=== PATIENT | male | born 1970 ===

== ENCOUNTER 2016-10-14 21:50 | Emergency (ER) | payer BC ==
[2016-10-14 22:00] VITALS: BP 150/90; PULSE 114; TEMP 98; BMI 27.1
[2016-10-14] MEDS ORDERED: OXYCODONE/APAP 5/325MG COMBO TABLET ONE (22:19)
[2016-10-14] MEDS ORDERED: OXYCODONE/APAP 5/325MG COMBO TABLET PO ONE (22:20)
--- NOTE | 2016-10-14 22:21 | PDOC ---
[id number] L ANKLE INJURY Time Seen by Provider: 10/14/16 22:20 - History of Present Illness Initial Comments: This 46-year-old man with a history of [id number] diabetes mellitus but no other significant past medical history presents with left ankle injury: Patient was playing soccer earlier this evening when he fell, twisting his left ankle. Patient states that his ankle appeared deformed after the fall and he "pushed it back into place". Patient has not been able to bear weight without extreme pain. No history of left leg/ankle injury in the past. He denies numbness/tingling in the left foot. Patient did not hit his head or injure his neck Past History - Past Medical History Allergies/Adverse Reactions: Allergies Allergy/AdvReac Type Severity Reaction Status Date / Time No Known Allergies Allergy Unverified 10/14/16 22:00 Home Medications: Ambulatory Orders Metformin HCl 500 mg PO DAILY 10/14/16 Oxycodone HCl/Acetaminophen [Percocet 5-325 mg Tablet] 1 - 2 tab PO Q6H PRN #20 tab MDD 4 tabs 10/15/16 Diabetes: Yes - Psycho/Social/Smoking Cessation Hx Anxiety: No Suicidal Ideation: No Smoking History: Unknown if ever smoked Have you smoked in the past 12 months: No Number of Cigarettes Smoked Daily: 0 Information on smoking cessation initiated: No Hx Alcohol Use: No Drug/Substance Use Hx: No Substance Use Type: None Review of Systems - Review of Systems Able to Perform ROS?: Yes Comments:: 12 point review of systems is negative except for what is noted in the history of present illness *Physical Exam - Vital Signs Last Vital Signs Temp Pulse Resp BP Pulse Ox 98 F 114 H 15 150/90 98 10/14/16 21:53 10/14/16 21:53 10/14/16 21:53 10/14/16 21:53 10/14/16 21:53 - Physical Exam Comments: GENERAL: The patient is awake, alert, and fully oriented, in moderate distress secondary to left ankle pain. Vital signs as noted. HEAD: Normal with no signs of trauma. EYES: Pupils equal, round and reactive to light, extraocular movements intact, sclera anicteric, conjunctiva clear with no pallor. ENT: moist mucous membranes. Ears normal, nares patent, oropharynx clear without exudates. NECK: Normal range of motion, supple without lymphadenopathy, JVD, or masses. LUNGS: Breath sounds equal, clear to auscultation bilaterally. No wheeze/ crackles. HEART: Regular rate and rhythm, normal S1 and S2 without murmur or rub. ABDOMEN: Soft/nontender/nondistended. BS wnl. No guarding or rebound. No palpable masses. No hepatosplenomegaly. EXTREMITIES: Left lower extremity-marked edema/deformity lateral malleolus with point tenderness at the malleolus and just distally No ecchymosis; palpable dorsalis pedis pulse at the midfoot; no foot deformity or tenderness. Distal foot warm and dry with excellent capillary refill; sensory functioning intact Remainder of the extremity exam is normal NEUROLOGICAL: Cranial nerves II through XII grossly intact. Normal speech, normal gait. PSYCH: Normal mood, normal affect. SKIN: Warm, Dry, normal turgor, no rashes or lesions noted. ED Treatment Course - RADIOLOGY Radiology Studies Ordered: Category Date Time Status ANKLE-LEFT [RAD] Stat Radiology 10/14/16 22:12 Ordered Progress Note - Progress Note Progress Note: Left ankle x-ray reveals obliques, slightly displaced fracture lateral malleolus at its junction with the distal fibula. There is mild lateral subluxation of the talus with soft tissue swelling. Case discussed with SOLO Marquez of [facility]) who is business control manager for the group. Patient should be seen tomorrow by Dr. Lamb or Dr. Mckee who are in the office. Meanwhile, ankle should be splinted. Sugar tong/posterior leg splint applied: Ortho-Glass material fashioned and secured with Vineet wraps. Neurovascular functioning intact after placement of the splint. Patient tolerated procedure well. Referral information for the [facility] will be given to the patient. He should call the office in the morning to arrange for follow-up later in the day. Meanwhile, the patient will be given prescription for Percocet 5/325 (#20 ) to be used as needed for severe pain, up to 4 times a day. (4 tablets max per day). Because the patient's pharmacy will not open until 8 AM, the patient was given 2 tablets of Percocet 5/325 Patient given crutches and crutch walking instruction provided. He should elevate the ankle to heart level or above as much as possible until seen by the orthopedist. . *DC/Admit/Observation/Transfer Diagnosis at time of Disposition: Fracture of distal fibula Qualifiers: Encounter type: initial encounter Fracture type: closed Fracture morphology: other fracture Laterality: left Qualified Code(s): S82.832A - Other fracture of upper and lower end of left fibula, initial encounter for closed fracture Subluxation of tarsal joint of left foot Qualifiers: Encounter type: initial encounter Qualified Code(s): S93.312A - Subluxation of tarsal joint of left foot, initial encounter - Discharge Dispostion Disposition: HOME Condition at time of disposition: Stable - Prescriptions Prescriptions: Oxycodone HCl/Acetaminophen [Percocet 5-325 mg Tablet] 1 - 2 tab PO Q6H PRN #20 tab MDD 4 tabs PRN Reason: Severe Pain - Referrals Referrals: Bird Lamb MD [Staff Physician] - Call tomorrow - Patient Instructions Printed Discharge Instructions: Ankle Fracture Additional Instructions: elevate left leg as much as possible crutches for ambulation tylenol/motrin/aleve for mild pain percocet as needed for severe pain call Orthopedic office in AM to be seen tommorow by Dr Lamb or Dr Mckee
[2016-10-15] MEDS ORDERED: OXYCODONE/APAP 5/325MG COMBO TABLET ONE (00:54)
== END 2016-10-15 00:57 | disposition home or self-care (01) ==
LOC: FER 21:50
PROC: 2W3RX1Z Immobilization of Left Lower Leg using Splint (ICD-10-PCS; principal; 2016-10-14)
DX: S93.312A Subluxation of tarsal joint of left foot, initial encounter (principal); S82.832A Other fracture of upper and lower end of left fibula, initial encounter for closed fracture; X58.XXXA Exposure to other specified factors, initial encounter; Y93.66 Activity, soccer; Y92.322 Soccer field as the place of occurrence of the external cause; E11.9 Type 2 diabetes mellitus without complications
CPT/HCPCS: 73610-TC-LT; 99282-25